=== PATIENT | male | born 2000 | race African-American/Black ===

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

== ENCOUNTER 2019-11-19 01:00 | Emergency (ER) | payer OTHER ==
[2019-11-19 01:11] VITALS: BP 129/78; PULSE 50; RESP 18; TEMP 98.5
[2019-11-19 01:31] LABS: Appearance,Urine Cloudy (Clear); Bilirubin,Urine Negative (Negative); Blood,Urine Trace (Negative); Budding Yeast,Urine Moderate /hpf; Color,Urine Light Yellow; Glucose,Urine (UA) Negative (Negative); Ketones,Urine Negative (Negative); Leukocyte Esterase,Urine Large (Negative); Mucus,Urine Rare /hpf; Nitrite,Urine Negative (Negative); Protein,Urine Negative (Negative); RBC,Urine 4 /hpf (0-5); Specific Gravity,Urine 1.013 (1.001-1.035); Urobilinogen,Urine <2.0 mg/dL (<2.0); WBC,Urine 179 /hpf (0-5)
[2019-11-19] MEDS ORDERED: AZITHROMYCIN 500 MG TAB PO STA (01:38)
[2019-11-19] MEDS ORDERED: cefTRIAXone 250 MG VIAL IM STA ×2 (01:38→01:49)
--- NOTE | 2019-11-19 01:38 | ED ---
Male Urogenital HPI - General Chief complaint: Urogenital Stated complaint: STD testing Time Seen by Provider: 11/19/19 01:18 Source: patient Mode of arrival: ambulatory Limitations: no limitations - History of Present Illness Initial comments: 19-year-old male patient presents to the emergency department today for evaluation of green penile discharge. Patient states that for the last couple of days he has had a greenish discharge coming from the tip of his penis. States he is having some dysuria. He denies any pain or swelling to the genitalia or scrotum. Denies any sores or wounds. Denies any abdominal pain, fever, or chills. Patient states that he has had sexually transmitted infection the past and his symptoms are similar. He denies any other concerns. - Related Data Home Medications Medication Instructions Recorded Confirmed No Known Home Medications 08/10/16 08/10/16 Allergies Allergy/AdvReac Type Severity Reaction Status Date / Time No Known Allergies Allergy Verified 11/19/19 01:10 Review of Systems ROS Statement: Those systems with pertinent positive or pertinent negative responses have been documented in the HPI. ROS Other: All systems not noted in ROS Statement are negative. Past Medical History Past Medical History: No Reported History History of Any Multi-Drug Resistant Organisms: None Reported Past Surgical History: No Surgical Hx Reported Past Psychological History: Anxiety, Depression Smoking Status: Current every day smoker Past Alcohol Use History: None Reported Past Drug Use History: Marijuana General Exam Limitations: no limitations General appearance: alert, in no apparent distress, other (This is a well- developed, well-nourished adult male patient in no acute distress. Vital signs upon presentation are temperature 98.5F, pulse 50, respirations 18, blood pressure 129/78, pulse ox 100% on room air.) Respiratory exam: Present: normal lung sounds bilaterally. Absent: respiratory distress, wheezes, rales, rhonchi, stridor Cardiovascular Exam: Present: regular rate, normal rhythm, normal heart sounds. Absent: systolic murmur, diastolic murmur, rubs, gallop, clicks GI/Abdominal exam: Present: soft, normal bowel sounds. Absent: distended, tenderness, guarding, rebound, rigid Neurological exam: Present: alert, oriented X3, CN II-XII intact Psychiatric exam: Present: normal affect, normal mood Skin exam: Present: warm, dry, intact, normal color. Absent: rash Course Vital Signs 11/19/19 01:06 Temperature 98.5 F Pulse Rate 50 L Respiratory 18 Rate Blood Pressure 129/78 O2 Sat by Pulse 100 Oximetry Medical Decision Making - Medical Decision Making 19-year-old male patient presented to the emergency department today with concern for sexually transmitted infection. States he is having greenish discharge from the tip of his penis. Urinalysis was performed and did reveal large leukocyte esterase, 179 white blood cells, few white blood cell clumps, rare mucous, moderate yeast. Urine was sent for gonorrhea and chlamydia. He will be treated with IM rocephin and azithromycin as there is concern for compliance with doxycycline. He was instructed to refrain from sexual intercourse for the next two weeks and to have his sexual partners treated as well. He is instructed to follow-up with his primary care physician for recheck in 1-2 days. Return parameters were discussed in detail. He verbalizes understanding and agrees with this plan. - Lab Data Lab Results 11/19/19 Range/Units 01:11 Urine Color Light Yellow Urine Appearance Cloudy (Clear) Urine pH 6.0 (5.0-8.0) Ur Specific [place] 1.013 (1.001-1.035) Urine Protein Negative (Negative) Urine Glucose (UA) Negative (Negative) Urine Ketones Negative (Negative) Urine Blood Trace H (Negative) Urine Nitrite Negative (Negative) Urine Bilirubin Negative (Negative) Urine Urobilinogen <2.0 (<2.0) mg/dL Ur Leukocyte Esterase Large H (Negative) Urine RBC 4 (0-5) /hpf Urine WBC 179 H (0-5) /hpf Urine WBC Clumps Few H (None) /hpf Urine Mucus Rare H (None) /hpf Urine Yeast (Budding) Moderate H (None) /hpf Disposition Clinical Impression: Sexually transmitted infection Disposition: HOME SELF-CARE Condition: Good Instructions (If sedation given, give patient instructions): Sexually Transmitted Diseases (ED) Additional Instructions: Do not have sexual intercourse for 2 weeks. All of your sexual partners should be treated or you will most likely get the infection again. Follow up with your primary care physician for further evaluation and retesting should you test positive. The hospital will call you only if your test results are positive. Return to the emergency department immediately for any new, worsening, or concerning symptoms. Is patient prescribed a controlled substance at d/c from ED?: No Referrals: Rayshawn Mcclendon DO [Primary Care Provider] - 1-2 days Time of Disposition: 01:38
[2019-11-20 08:51] LABS: C. trachomatis,PCR Positive (Neg,Equiv); Chlamydia trachomatis Source Urine; N. gonorrhoeae,PCR Positive (Neg,Equiv); Neisseria Source Urine
== END 2019-11-19 01:58 | disposition home or self-care (01) ==
LOC: SUPCPDRO 01:00 → EC 01:00
DX: A64 Unspecified sexually transmitted disease (principal); F17.200 Nicotine dependence, unspecified, uncomplicated; Z86.19 Personal history of other infectious and parasitic diseases
CPT/HCPCS: 81001; 87491; 87591; 87086; 99283; 96372; J0696